=== PATIENT | female | born 1960 | race Caucasian/White ===

== ENCOUNTER 2017-10-25 11:10 | Emergency (ER) | payer OTHER ==
[~2017-10-25] VITALS: Ht 170.2 cm; Wt 42.8 kg
[2017-10-25] MEDS ORDERED: ondansetron/PF 4mg/2ml inj IV ONE (11:35)
[2017-10-25] MEDS ORDERED: morphine 4 MG/ML inj SYRINge IV ONE (11:35)
[2017-10-25] MEDS ORDERED: normal saline 1000ML IV soln IVB ONE ×2 (11:35→12:35)
[2017-10-25 11:45] LABS: BASOPHILS % (AUTO) 0.1 % (0-1); EOSINOPHILS % (AUTO) 0 % (0-6); LYMPHOCYTES % (AUTO) 10.4 % (21-51); MEAN CORPUSCULAR HEMOGLOBIN 30.3 PG (27.0-31.0); MEAN CORPUSCULAR HGB CONC 33.9 % (33.0-36.5); MEAN CORPUSCULAR VOLUME 89.4 FL (78-98); MEAN PLATELET VOLUME 8.8 FL (7.4-10.4); MONOCYTES # (AUTO) 0.4 X10'3 (0-0.9); MONOCYTES % (AUTO) 3.8 % (2-12); NEUTROPHILS # (AUTO) 8.5 X10'3 (1.8-7.7); NEUTROPHILS % (AUTO) 85.7 % (42-75); PLATELET COUNT 202 X10'3 (140-440); RED BLOOD COUNT 6.27 X10'6 (4.20-5.60); RED CELL DISTRIBUTION WIDTH 14.4 % (11.5-14.5); WHITE BLOOD COUNT 9.9 X10'3 (4.5-11.0)
[2017-10-25 11:54] LABS: INR 1.1 INR; PROTHROMBIN TIME 11.4 SECONDS (9.0-12.0)
[2017-10-25 12:06] LABS: ALANINE AMINOTRANSFERASE 28 U/L (12-78); ALBUMIN 4.4 G/DL (3.4-5.0); ALKALINE PHOSPHATASE 162 IU/L (46-116); ANION GAP 11 (8-16); ASPARTATE AMINO TRANSFERASE 26 U/L (10-37); BILIRUBIN,TOTAL 1.1 MG/DL (0.1-1.0); BLOOD UREA NITROGEN 19 MG/DL (7-18); BUN/CREATININE RATIO 13.5 (6.6-38.0); CALCIUM 10.4 MG/DL (8.5-10.1); CHLORIDE 91 MMOL/L (99-107); CREATININE 1.41 MG/DL (0.40-0.90); GLUCOSE 274 MG/DL (70-104); LIPASE 54 U/L (73-393); POTASSIUM 3.8 MMOL/L (3.5-5.1); SODIUM 129 MMOL/L (135-145); TOTAL CARBON DIOXIDE 27.3 MMOL/L (24-32); TOTAL PROTEIN 8.7 G/DL (6.4-8.2); eGFR 38 ML/MIN
[2017-10-25] MEDS ORDERED: morphine 10mg/ml inj. IV ONE (13:00)
[2017-10-25 14:14] LABS: BASOPHILS % (AUTO) 0.1 % (0-1); EOSINOPHILS # (AUTO) 0.1 X10'3 (0-0.9); EOSINOPHILS % (AUTO) 1.3 % (0-6); HEMATOCRIT 47.3 % (35.0-45.0); HEMOGLOBIN 16.1 g/dl (12.0-16.0); LYMPHOCYTES # (AUTO) 0.8 X10'3 (1.1-4.8); LYMPHOCYTES % (AUTO) 10.4 % (21-51); MEAN CORPUSCULAR HEMOGLOBIN 30.2 PG (27.0-31.0); MEAN CORPUSCULAR HGB CONC 34.1 % (33.0-36.5); MEAN CORPUSCULAR VOLUME 88.7 FL (78-98); MEAN PLATELET VOLUME 8.9 FL (7.4-10.4); MONOCYTES # (AUTO) 0.4 X10'3 (0-0.9); NEUTROPHILS # (AUTO) 6.7 X10'3 (1.8-7.7); NEUTROPHILS % (AUTO) 83.2 % (42-75); PLATELET COUNT 120 X10'3 (140-440); RED BLOOD COUNT 5.34 X10'6 (4.20-5.60); RED CELL DISTRIBUTION WIDTH 14.6 % (11.5-14.5); WHITE BLOOD COUNT 8.1 X10'3 (4.5-11.0)
[2017-10-25 14:29] LABS: ALANINE AMINOTRANSFERASE 20 U/L (12-78); ALBUMIN 3.3 G/DL (3.4-5.0); ALKALINE PHOSPHATASE 127 IU/L (46-116); ANION GAP 8 (8-16); ASPARTATE AMINO TRANSFERASE 21 U/L (10-37); BILIRUBIN,TOTAL 0.6 MG/DL (0.1-1.0); BLOOD UREA NITROGEN 17 MG/DL (7-18); CALCIUM 8.7 MG/DL (8.5-10.1); CHLORIDE 98 MMOL/L (99-107); CREATININE 1.31 MG/DL (0.40-0.90); GLUCOSE 211 MG/DL (70-104); POTASSIUM 3.8 MMOL/L (3.5-5.1); SODIUM 133 MMOL/L (135-145); TOTAL CARBON DIOXIDE 27.2 MMOL/L (24-32); TOTAL PROTEIN 6.7 G/DL (6.4-8.2); eGFR 42 ML/MIN
[2017-10-25 14:48] VITALS: BP 129/71
== END 2017-10-25 14:51 | disposition home or self-care (01) ==
LOC: ER 11:12
DX: K86.1 Other chronic pancreatitis (principal); E86.0 Dehydration; F17.200 Nicotine dependence, unspecified, uncomplicated; I25.10 Atherosclerotic heart disease of native coronary artery without angina pectoris; I25.2 Old myocardial infarction; Z88.8 Allergy status to other drugs, medicaments and biological substances
CPT/HCPCS: 36415; 80053; 83690; 85025; 85610; 96361; 96374; 96375; 96376; 99285; J2270; J2405; J7030

== ENCOUNTER 2017-10-27 14:02 | Emergency (ER) | payer OTHER ==
[~2017-10-27] VITALS: Ht 584.7 cm; Wt 42.0 kg
[2017-10-27] MEDS ORDERED: ondansetron/PF 4mg/2ml inj IV ONE ×2 (14:15→14:20)
[2017-10-27] MEDS ORDERED: normal saline 1000ML IV soln IVB ONE ×2 (14:15→15:10)
[2017-10-27] MEDS ORDERED: morphine 4 MG/ML inj SYRINge IV ONE (14:20)
[2017-10-27 14:32] LABS: BASOPHILS # (AUTO) 0.1 X10'3 (0-0.2); BASOPHILS % (AUTO) 0.6 % (0-1); EOSINOPHILS # (AUTO) 0.1 X10'3 (0-0.9); EOSINOPHILS % (AUTO) 0.6 % (0-6); HEMATOCRIT 56.1 % (35.0-45.0); LYMPHOCYTES # (AUTO) 2.3 X10'3 (1.1-4.8); LYMPHOCYTES % (AUTO) 21.6 % (21-51); MEAN CORPUSCULAR HEMOGLOBIN 30.3 PG (27.0-31.0); MEAN CORPUSCULAR VOLUME 89.1 FL (78-98); MEAN PLATELET VOLUME 8.7 FL (7.4-10.4); MONOCYTES % (AUTO) 9.2 % (2-12); NEUTROPHILS # (AUTO) 7.1 X10'3 (1.8-7.7); PLATELET COUNT 198 X10'3 (140-440); RED BLOOD COUNT 6.29 X10'6 (4.20-5.60); RED CELL DISTRIBUTION WIDTH 14.7 % (11.5-14.5); WHITE BLOOD COUNT 10.4 X10'3 (4.5-11.0)
[2017-10-27 14:39] LABS: HEMOGLOBIN 19.1 g/dl (12.0-16.0)
[2017-10-27 14:53] LABS: ALANINE AMINOTRANSFERASE 27 U/L (12-78); ALBUMIN 3.9 G/DL (3.4-5.0); ALBUMIN/GLOBULIN RATIO 1.1 (1.1-1.5); ALKALINE PHOSPHATASE 161 IU/L (46-116); ANION GAP 8 (8-16); ASPARTATE AMINO TRANSFERASE 20 U/L (10-37); BILIRUBIN,TOTAL 0.9 MG/DL (0.1-1.0); BLOOD UREA NITROGEN 20 MG/DL (7-18); BUN/CREATININE RATIO 14.8 (6.6-38.0); CALCIUM 9.6 MG/DL (8.5-10.1); CHLORIDE 94 MMOL/L (99-107); CREATININE 1.35 MG/DL (0.40-0.90); GLUCOSE 192 MG/DL (70-104); LIPASE 61 U/L (73-393); SODIUM 132 MMOL/L (135-145); TOTAL CARBON DIOXIDE 30.3 MMOL/L (24-32); TOTAL PROTEIN 7.6 G/DL (6.4-8.2); eGFR 40 ML/MIN
[2017-10-27 15:24] VITALS: BP 163/86
[2017-10-27] MEDS ORDERED: ketorolac trometh. 30mg/ml inj. IV ONE (15:40)
[2017-10-27] MEDS ORDERED: HYDROmorphone 1 mg/ml syringe IV ONE (15:40)
[2017-10-27 15:45] LABS: CLARITY,URINE CLEAR (Clear); COLOR,URINE YELLOW (Yellow); GLUCOSE, URINE NEGATIVE (Neg); KETONES,URINE NEGATIVE (Neg); LEUKOCYTE ESTERASE ,URINE NEGATIVE (Neg); NITRITES, URINE NEGATIVE (Neg); OCCULT BLOOD,URINE TRACE-INTACT (Neg); PH,URINE 6.5 (4.8-8.0); PROTEIN,URINE >=300 mg/dl (Neg); UROBILINOGEN,URINE 0.2 E.U/dL (0.2-1.0)
[2017-10-27 16:01] LABS: UA COLLECTION TYPE CLN CATCH MIDSTREAM
[2017-10-27 16:02] LABS: WBC,URINE 0-4 /HPF (0-4)
[2017-10-27 16:04] LABS: BACTERIA,URINE FEW /HPF (Neg); MUCUS STRANDS FEW /LPF (Neg); SQUAMOUS EPITHELIAL CELL,UR FEW /LPF (FEW)
[2017-10-28] MEDS ORDERED: FENT-92 TD (17:50)
[2017-10-28] MEDS ORDERED: CLOP75TA15 PO (17:50)
[2017-10-28] MEDS ORDERED: PER5325T PO (17:50)
[2017-10-28] MEDS ORDERED: AMYL1CAP56 PO (17:50)
[2017-10-28] MEDS ORDERED: SUCR1ORA2 PO (17:50)
[2017-10-28] MEDS ORDERED: ONDA8TAB6 PO (17:50)
[2017-10-28] MEDS ORDERED: METO-467 PO (17:50)
[2017-10-28] MEDS ORDERED: PANT20TA3 PO (17:50)
[2017-10-28] MEDS ORDERED: THO10T PO (17:50)
== END 2017-10-27 16:34 | disposition home or self-care (01) ==
LOC: ER 14:04
DX: K86.1 Other chronic pancreatitis (principal); I25.2 Old myocardial infarction; I25.10 Atherosclerotic heart disease of native coronary artery without angina pectoris; Z88.8 Allergy status to other drugs, medicaments and biological substances
CPT/HCPCS: 36415; 80053; 81001; 83690; 84484; 85025; 93005; 96361; 96374; 96375; 99285; J1170; J1885; J2270; J2405; J7030

== ENCOUNTER 2017-10-28 15:14 | Inpatient (IN) | payer OTHER ==
[~2017-10-28] VITALS: Ht 170.2 cm; Wt 44.7 kg
[2017-10-28] MEDS ORDERED: HYDROmorphone 1 mg/ml syringe IV ONE ×4 (15:35→23:10)
[2017-10-28] MEDS ORDERED: ondansetron/PF 4mg/2ml inj IV ONE (15:35)
[2017-10-28] MEDS ORDERED: normal saline 1000ML IV soln IVB ONE (15:35)
[2017-10-28] MEDS ORDERED: ketorolac tromethamine 15mg/ml inj. IV ONE (15:35)
[2017-10-28 15:59] LABS: BASOPHILS % (AUTO) 0.1 % (0-1); EOSINOPHILS # (AUTO) 0.1 X10'3 (0-0.9); EOSINOPHILS % (AUTO) 0.5 % (0-6); HEMATOCRIT 57.3 % (35.0-45.0); LYMPHOCYTES # (AUTO) 1.7 X10'3 (1.1-4.8); LYMPHOCYTES % (AUTO) 10.3 % (21-51); MEAN CORPUSCULAR HEMOGLOBIN 30.1 PG (27.0-31.0); MEAN CORPUSCULAR VOLUME 88.5 FL (78-98); MEAN PLATELET VOLUME 8.9 FL (7.4-10.4); MONOCYTES # (AUTO) 0.8 X10'3 (0-0.9); MONOCYTES % (AUTO) 5.1 % (2-12); PLATELET COUNT 200 X10'3 (140-440); RED BLOOD COUNT 6.47 X10'6 (4.20-5.60); RED CELL DISTRIBUTION WIDTH 14.4 % (11.5-14.5); WHITE BLOOD COUNT 16.7 X10'3 (4.5-11.0)
[2017-10-28 16:05] LABS: HEMOGLOBIN 19.5 g/dl (12.0-16.0)
[2017-10-28 16:07] LABS: CLARITY,URINE SLIGHTLY CLOUDY (Clear); COLOR,URINE YELLOW (Yellow); GLUCOSE, URINE NEGATIVE (Neg); KETONES,URINE 40 mg/dl (Neg); LEUKOCYTE ESTERASE ,URINE NEGATIVE (Neg); NITRITES, URINE NEGATIVE (Neg); OCCULT BLOOD,URINE TRACE-INTACT (Neg); PROTEIN,URINE 100 mg/dl (Neg); UA COLLECTION TYPE CLN CATCH MIDSTREAM
[2017-10-28 16:14] LABS: ALANINE AMINOTRANSFERASE 95 U/L (12-78); ALBUMIN 3.9 G/DL (3.4-5.0); ALKALINE PHOSPHATASE 245 IU/L (46-116); ANION GAP 8 (8-16); ASPARTATE AMINO TRANSFERASE 65 U/L (10-37); BILIRUBIN,TOTAL 1.2 MG/DL (0.1-1.0); BLOOD UREA NITROGEN 27 MG/DL (7-18); BUN/CREATININE RATIO 22.3 (6.6-38.0); CALCIUM 9.6 MG/DL (8.5-10.1); CHLORIDE 92 MMOL/L (99-107); CREATININE 1.21 MG/DL (0.40-0.90); GLUCOSE 188 MG/DL (70-104); LIPASE < 50 U/L (73-393); SODIUM 129 MMOL/L (135-145); TOTAL CARBON DIOXIDE 29.3 MMOL/L (24-32); TOTAL PROTEIN 7.8 G/DL (6.4-8.2); eGFR 46 ML/MIN
[2017-10-28 16:16] LABS: POTASSIUM 4.1 MMOL/L (3.5-5.1)
[2017-10-28 16:28] LABS: MUCUS STRANDS FEW /LPF (Neg); SQUAMOUS EPITHELIAL CELL,UR MODERATE /LPF (FEW)
[2017-10-28 16:31] LABS: BACTERIA,URINE FEW /HPF (Neg); WBC,URINE 0-4 /HPF (0-4)
[2017-10-28] MEDS ORDERED: iohexol 300mg/ml 100ml inj. ONE (17:09)
[2017-10-28] MEDS ORDERED: METO-467 PO (17:50)
[2017-10-28] MEDS ORDERED: ONDA8TAB6 PO (17:50)
[2017-10-28] MEDS ORDERED: SUCR1ORA2 PO (17:50)
[2017-10-28] MEDS ORDERED: PER5325T PO (17:50)
[2017-10-28] MEDS ORDERED: FENT-92 TD (17:50)
[2017-10-28] MEDS ORDERED: THO10T PO (17:50)
[2017-10-28] MEDS ORDERED: AMYL1CAP56 PO (17:50)
[2017-10-28] MEDS ORDERED: CLOP75TA15 PO (17:50)
[2017-10-28] MEDS ORDERED: PANT20TA3 PO (17:50)
[2017-10-28] MEDS ORDERED: normal saline 1000ML IV soln IV ONE (19:45)
[2017-10-28] MEDS ORDERED: metoprolol tartrate 1mg/ml inj IV ONE (20:00)
[2017-10-28] MEDS ORDERED: pantoprazole 40mg Tablet.DR PO ONE (20:05)
[2017-10-28] MEDS ORDERED: normal saline 1000ml 1,000 ML IV ONE (20:10)
[2017-10-28] MEDS ORDERED: acetaminophen 325mg tablet PO PRN ×2 (20:10)
[2017-10-28] MEDS ORDERED: HYDROmorphone inj. 0.5 MG/0.5 ML DISP.SYRIN IV PRN ×2 (20:10)
[2017-10-28] MEDS ORDERED: mag hydrox/Alum hydrox/simeth 30ml oral suspension PO PRN (20:10)
[2017-10-28] MEDS ORDERED: magnesium hydroxide 30ml (MOM) UD suspension PO PRN (20:10)
[2017-10-28] MEDS ORDERED: HYDROmorphone 1 mg/ml syringe ONE (20:16)
[2017-10-28] MEDS: normal saline 1000ml 1,000 ML IV SCH (20:46)
[2017-10-28] MEDS: LIPASE/PROTEASE/AMYLASE 4,200 unit CAPSULE.DR PO SCH ×2 (21:00→23:54)
[2017-10-28] MEDS: chlorproMAZINE 25mg tablet PO SCH ×2 (21:00→23:53)
[2017-10-28 21:15] VITALS: BP 210/124
[2017-10-28] MEDS ORDERED: HYDROmorphone/NS 1 mg/ml CADD 50 ML IV SCH (21:45)
[2017-10-28] MEDS: metoprolol tartrate 50mg tablet PO SCH (21:56)
[2017-10-28 22:35] VITALS: BP 153/89
[2017-10-28] MEDS: ondansetron/PF 4mg/2ml inj IV PRN (23:56)
[2017-10-29] VITALS: BP 190/113
[2017-10-29] MEDS: hydrALAZINE 20mg/ml inj. IV PRN (00:24)
[2017-10-29 01:20] VITALS: BP 148/93
[2017-10-29] MEDS: sucralfate 1gm/10ml UD suspension PO SCH ×4 (01:33→19:32)
[2017-10-29] MEDS: HYDROmorphone/NS 1 mg/ml CADD 50 ML IV SCH ×11 (03:00→23:00)
[2017-10-29] MEDS: normal saline 1000ml 1,000 ML IV SCH ×3 (04:07→21:34)
[2017-10-29 06:35] LABS: BASOPHILS % (AUTO) 0 % (0-1); EOSINOPHILS # (AUTO) 0.2 X10'3 (0-0.9); EOSINOPHILS % (AUTO) 1.4 % (0-6); HEMATOCRIT 45.8 % (35.0-45.0); HEMOGLOBIN 15.8 g/dl (12.0-16.0); LYMPHOCYTES # (AUTO) 1.1 X10'3 (1.1-4.8); LYMPHOCYTES % (AUTO) 7.8 % (21-51); MEAN CORPUSCULAR HEMOGLOBIN 30.4 PG (27.0-31.0); MEAN CORPUSCULAR HGB CONC 34.4 % (33.0-36.5); MEAN CORPUSCULAR VOLUME 88.4 FL (78-98); MEAN PLATELET VOLUME 9.2 FL (7.4-10.4); MONOCYTES # (AUTO) 0.6 X10'3 (0-0.9); MONOCYTES % (AUTO) 4.6 % (2-12); NEUTROPHILS # (AUTO) 12.2 X10'3 (1.8-7.7); NEUTROPHILS % (AUTO) 86.2 % (42-75); PLATELET COUNT 122 X10'3 (140-440); RED BLOOD COUNT 5.18 X10'6 (4.20-5.60); RED CELL DISTRIBUTION WIDTH 14.1 % (11.5-14.5); WHITE BLOOD COUNT 14.2 X10'3 (4.5-11.0)
[2017-10-29 06:51] LABS: ALANINE AMINOTRANSFERASE 57 U/L (12-78); ALBUMIN 2.7 G/DL (3.4-5.0); ALKALINE PHOSPHATASE 149 IU/L (46-116); ANION GAP 9 (8-16); ASPARTATE AMINO TRANSFERASE 32 U/L (10-37); BILIRUBIN,DIRECT 0.2 MG/DL (0-0.3); BILIRUBIN,TOTAL 0.9 MG/DL (0.1-1.0); BLOOD UREA NITROGEN 24 MG/DL (7-18); BUN/CREATININE RATIO 29.6 (6.6-38.0); CHLORIDE 98 MMOL/L (99-107); CREATININE 0.81 MG/DL (0.40-0.90); GLUCOSE 155 MG/DL (70-104); POTASSIUM 3.2 MMOL/L (3.5-5.1); SODIUM 130 MMOL/L (135-145); TOTAL CARBON DIOXIDE 22.8 MMOL/L (24-32); TOTAL PROTEIN 5.5 G/DL (6.4-8.2); eGFR 73 ML/MIN
[2017-10-29 08:00] VITALS: BP 167/99
[2017-10-29] MEDS: LIPASE/PROTEASE/AMYLASE 4,200 unit CAPSULE.DR PO SCH ×3 (08:00→21:41)
[2017-10-29] MEDS ORDERED: pantoprazole 40mg Tablet.DR PO SCH (08:00)
[2017-10-29] MEDS: metoprolol tartrate 50mg tablet PO SCH ×2 (08:29→19:33)
[2017-10-29] MEDS: clopidogrel 75mg tablet PO SCH (08:29)
[2017-10-29] MEDS: pantoprazole 40mg Tablet.DR PO SCH ×2 (08:30→08:37)
[2017-10-29] MEDS: chlorproMAZINE 25mg tablet PO SCH ×3 (10:08→21:41)
[2017-10-29] MEDS ORDERED: magnesium Cl slow-release 64mg tablet PO PRN (10:55)
[2017-10-29] MEDS ORDERED: potassium Cl 40MEQ/NS 500ml 500 ML IV PRN ×2 (10:55)
[2017-10-29] MEDS ORDERED: potassium Cl 20 mEq SR tablet PO PRN (10:55)
[2017-10-29] MEDS ORDERED: magnesium 4gm in 100ml NS 100 ML IV PRN (10:55)
[2017-10-29 11:54] LABS: MAGNESIUM 1.2 MG/DL (1.5-2.4); POTASSIUM 3.3 MMOL/L (3.5-5.1)
[2017-10-29 12:00] VITALS: BP 138/90
[2017-10-29] MEDS: potassium Cl 20 mEq SR tablet PO PRN ×2 (15:28→19:35)
[2017-10-29 20:00] VITALS: BP 141/78
[2017-10-29 22:37] VITALS: BP 141/78
[2017-10-29] MEDS: magnesium 1gm/100ml D5W IVPB 100 ML IV PRN (23:22)
[2017-10-30] VITALS: BP 111/73
[2017-10-30] MEDS: HYDROmorphone/NS 1 mg/ml CADD 50 ML IV SCH ×12 (01:00→23:00)
[2017-10-30] MEDS: magnesium 1gm/100ml D5W IVPB 100 ML IV PRN (01:44)
[2017-10-30] MEDS: sucralfate 1gm/10ml UD suspension PO SCH ×4 (01:44→20:24)
[2017-10-30] MEDS: normal saline 1000ml 1,000 ML IV SCH ×4 (04:07→23:52)
[2017-10-30 05:38] LABS: BASOPHILS % (AUTO) 0.3 % (0-1); EOSINOPHILS # (AUTO) 0.2 X10'3 (0-0.9); EOSINOPHILS % (AUTO) 3.1 % (0-6); HEMATOCRIT 36.6 % (35.0-45.0); HEMOGLOBIN 12.6 g/dl (12.0-16.0); LYMPHOCYTES # (AUTO) 1.2 X10'3 (1.1-4.8); LYMPHOCYTES % (AUTO) 21.2 % (21-51); MEAN CORPUSCULAR HEMOGLOBIN 30.5 PG (27.0-31.0); MEAN CORPUSCULAR HGB CONC 34.3 % (33.0-36.5); MEAN CORPUSCULAR VOLUME 88.9 FL (78-98); MEAN PLATELET VOLUME 9.1 FL (7.4-10.4); MONOCYTES # (AUTO) 0.3 X10'3 (0-0.9); MONOCYTES % (AUTO) 5.8 % (2-12); NEUTROPHILS # (AUTO) 4.1 X10'3 (1.8-7.7); NEUTROPHILS % (AUTO) 69.6 % (42-75); PLATELET COUNT 66 X10'3 (140-440); RED BLOOD COUNT 4.12 X10'6 (4.20-5.60); WHITE BLOOD COUNT 5.9 X10'3 (4.5-11.0)
[2017-10-30 06:09] LABS: ALBUMIN 2.2 G/DL (3.4-5.0); ANION GAP 8 (8-16); BLOOD UREA NITROGEN 19 MG/DL (7-18); BUN/CREATININE RATIO 22.9 (6.6-38.0); CALCIUM 7.7 MG/DL (8.5-10.1); CHLORIDE 105 MMOL/L (99-107); CREATININE 0.83 MG/DL (0.40-0.90); GLUCOSE 110 MG/DL (70-104); POTASSIUM 3.7 MMOL/L (3.5-5.1); SODIUM 135 MMOL/L (135-145); TOTAL CARBON DIOXIDE 21.9 MMOL/L (24-32); eGFR 71 ML/MIN
[2017-10-30 07:00] VITALS: BP 133/84
[2017-10-30] MEDS: chlorproMAZINE 25mg tablet PO SCH ×3 (09:44→20:27)
[2017-10-30] MEDS: LIPASE/PROTEASE/AMYLASE 4,200 unit CAPSULE.DR PO SCH ×3 (09:44→20:26)
[2017-10-30] MEDS: pantoprazole 40mg Tablet.DR PO SCH (09:44)
[2017-10-30] MEDS: clopidogrel 75mg tablet PO SCH (09:44)
[2017-10-30] MEDS: fentaNYL 75 MCG/hour patch.TD72 TD SCH (09:45)
[2017-10-30] MEDS: metoprolol tartrate 50mg tablet PO SCH ×2 (09:45→20:26)
[2017-10-30 12:00] VITALS: BP 183/101
[2017-10-30] MEDS: nicotine 14mg patch - 24hr TD SCH (12:47)
[2017-10-30 15:30] VITALS: BP 163/91
[2017-10-30 19:00] VITALS: BP 162/87
[2017-10-31] VITALS: BP 130/75
[2017-10-31] MEDS: HYDROmorphone/NS 1 mg/ml CADD 50 ML IV SCH ×12 (01:00→23:00)
[2017-10-31] MEDS: sucralfate 1gm/10ml UD suspension PO SCH ×4 (02:00→19:54)
[2017-10-31 05:12] LABS: BASOPHILS % (AUTO) 0.4 % (0-1); EOSINOPHILS # (AUTO) 0.1 X10'3 (0-0.9); EOSINOPHILS % (AUTO) 2.6 % (0-6); HEMATOCRIT 32.8 % (35.0-45.0); HEMOGLOBIN 11.2 g/dl (12.0-16.0); LYMPHOCYTES # (AUTO) 0.9 X10'3 (1.1-4.8); LYMPHOCYTES % (AUTO) 21.9 % (21-51); MEAN CORPUSCULAR HEMOGLOBIN 30.3 PG (27.0-31.0); MEAN CORPUSCULAR HGB CONC 34.1 % (33.0-36.5); MEAN CORPUSCULAR VOLUME 88.9 FL (78-98); MEAN PLATELET VOLUME 9.9 FL (7.4-10.4); MONOCYTES # (AUTO) 0.3 X10'3 (0-0.9); MONOCYTES % (AUTO) 6.4 % (2-12); NEUTROPHILS # (AUTO) 2.9 X10'3 (1.8-7.7); NEUTROPHILS % (AUTO) 68.7 % (42-75); PLATELET COUNT 63 X10'3 (140-440); RED BLOOD COUNT 3.69 X10'6 (4.20-5.60); RED CELL DISTRIBUTION WIDTH 13.9 % (11.5-14.5); WHITE BLOOD COUNT 4.2 X10'3 (4.5-11.0)
[2017-10-31 06:06] LABS: ALBUMIN 2.2 G/DL (3.4-5.0); ANION GAP 9 (8-16); BLOOD UREA NITROGEN 14 MG/DL (7-18); BUN/CREATININE RATIO 17.9 (6.6-38.0); CALCIUM 8.1 MG/DL (8.5-10.1); CHLORIDE 107 MMOL/L (99-107); CREATININE 0.78 MG/DL (0.40-0.90); GLUCOSE 88 MG/DL (70-104); MAGNESIUM 1.7 MG/DL (1.5-2.4); POTASSIUM 3.4 MMOL/L (3.5-5.1); SODIUM 136 MMOL/L (135-145); TOTAL CARBON DIOXIDE 19.7 MMOL/L (24-32); eGFR 76 ML/MIN
[2017-10-31 07:00] VITALS: BP 158/81
[2017-10-31] MEDS: pantoprazole 40mg Tablet.DR PO SCH (08:29)
[2017-10-31] MEDS: chlorproMAZINE 25mg tablet PO SCH ×3 (08:29→20:49)
[2017-10-31] MEDS: LIPASE/PROTEASE/AMYLASE 4,200 unit CAPSULE.DR PO SCH ×3 (08:29→20:50)
[2017-10-31] MEDS: clopidogrel 75mg tablet PO SCH (08:29)
[2017-10-31] MEDS: metoprolol tartrate 50mg tablet PO SCH ×2 (08:30→19:54)
[2017-10-31] MEDS: nicotine 14mg patch - 24hr TD SCH (08:31)
[2017-10-31] MEDS: normal saline 1000ml 1,000 ML IV SCH ×2 (08:51→17:08)
[2017-10-31 11:00] VITALS: BP 149/88
[2017-10-31] MEDS ORDERED: naloxone 0.4 mg/ml inj IV PRN (11:05)
[2017-10-31] MEDS ORDERED: CADD PCA waste documentation MC SCH (11:05)
[2017-10-31 18:50] VITALS: BP 168/98
[2017-10-31] MEDS: hydrALAZINE 20mg/ml inj. IV PRN (19:54)
[2017-10-31] MEDS: LORazepam 0.5 MG tablet PO PRN (19:54)
[2017-11-01] VITALS: BP 170/107
[2017-11-01] MEDS: normal saline 1000ml 1,000 ML IV SCH ×3 (00:43→20:49)
[2017-11-01] MEDS: HYDROmorphone/NS 1 mg/ml CADD 50 ML IV SCH ×12 (00:59→23:00)
[2017-11-01] MEDS: sucralfate 1gm/10ml UD suspension PO SCH ×4 (02:17→20:50)
[2017-11-01] MEDS: hydrALAZINE 20mg/ml inj. IV PRN (04:16)
[2017-11-01 04:23] VITALS: BP 174/94
[2017-11-01 05:31] LABS: BASOPHILS % (AUTO) 0.5 % (0-1); EOSINOPHILS # (AUTO) 0.1 X10'3 (0-0.9); EOSINOPHILS % (AUTO) 2.9 % (0-6); HEMATOCRIT 34.4 % (35.0-45.0); HEMOGLOBIN 11.8 g/dl (12.0-16.0); LYMPHOCYTES # (AUTO) 0.8 X10'3 (1.1-4.8); LYMPHOCYTES % (AUTO) 19.2 % (21-51); MEAN CORPUSCULAR HEMOGLOBIN 30.4 PG (27.0-31.0); MEAN CORPUSCULAR HGB CONC 34.4 % (33.0-36.5); MEAN CORPUSCULAR VOLUME 88.4 FL (78-98); MEAN PLATELET VOLUME 9.5 FL (7.4-10.4); MONOCYTES # (AUTO) 0.2 X10'3 (0-0.9); MONOCYTES % (AUTO) 6.2 % (2-12); NEUTROPHILS # (AUTO) 2.8 X10'3 (1.8-7.7); NEUTROPHILS % (AUTO) 71.2 % (42-75); PLATELET COUNT 57 X10'3 (140-440); RED BLOOD COUNT 3.89 X10'6 (4.20-5.60); RED CELL DISTRIBUTION WIDTH 14.1 % (11.5-14.5); WHITE BLOOD COUNT 3.9 X10'3 (4.5-11.0)
[2017-11-01 05:44] LABS: ALBUMIN 2.3 G/DL (3.4-5.0); ANION GAP 7 (8-16); BLOOD UREA NITROGEN 5 MG/DL (7-18); BUN/CREATININE RATIO 7.8 (6.6-38.0); CALCIUM 8.2 MG/DL (8.5-10.1); CHLORIDE 106 MMOL/L (99-107); CREATININE 0.64 MG/DL (0.40-0.90); GLUCOSE 125 MG/DL (70-104); MAGNESIUM 1.3 MG/DL (1.5-2.4); SODIUM 138 MMOL/L (135-145); TOTAL CARBON DIOXIDE 25.4 MMOL/L (24-32); eGFR > 90 ML/MIN
[2017-11-01 07:00] VITALS: BP 157/104
[2017-11-01] MEDS: nicotine 14mg patch - 24hr TD SCH (08:25)
[2017-11-01] MEDS: pantoprazole 40mg Tablet.DR PO SCH (08:28)
[2017-11-01] MEDS: chlorproMAZINE 25mg tablet PO SCH ×3 (08:28→22:33)
[2017-11-01] MEDS: metoprolol tartrate 50mg tablet PO SCH ×2 (08:29→20:50)
[2017-11-01] MEDS: citalopram 20mg tablet PO SCH (08:29)
[2017-11-01] MEDS: clopidogrel 75mg tablet PO SCH (08:29)
[2017-11-01] MEDS: LIPASE/PROTEASE/AMYLASE 4,200 unit CAPSULE.DR PO SCH ×3 (08:37→22:33)
[2017-11-01] MEDS: ondansetron/PF 4mg/2ml inj IV PRN (10:03)
[2017-11-01] MEDS ORDERED: AMLO5TAB16 PO (10:30)
[2017-11-01] MEDS ORDERED: amLODIPine 5mg tablet PO ONE ×2 (10:30→17:35)
[2017-11-01] MEDS ORDERED: CITA-124 PO (10:30)
[2017-11-01 11:00] VITALS: BP 162/98
[2017-11-01 12:09] LABS: % IRON SATURATION 25 % (11-46); IRON 52 UG/DL (49-151); TOTAL IRON BINDING CAPACITY 206 UG/DL (259-388)
[2017-11-01 18:00] VITALS: BP 159/103
[2017-11-01] MEDS: LORazepam 0.5 MG tablet PO PRN (20:52)
[2017-11-02] VITALS: BP 169/103
[2017-11-02 00:30] VITALS: BP 143/87
[2017-11-02] MEDS: HYDROmorphone/NS 1 mg/ml CADD 50 ML IV SCH ×5 (01:00→09:00)
[2017-11-02] MEDS: sucralfate 1gm/10ml UD suspension PO SCH ×2 (01:59→08:24)
[2017-11-02 04:32] LABS: BASOPHILS % (AUTO) 0.3 % (0-1); EOSINOPHILS # (AUTO) 0.2 X10'3 (0-0.9); EOSINOPHILS % (AUTO) 3.4 % (0-6); HEMATOCRIT 35.3 % (35.0-45.0); HEMOGLOBIN 12.1 g/dl (12.0-16.0); LYMPHOCYTES # (AUTO) 0.9 X10'3 (1.1-4.8); LYMPHOCYTES % (AUTO) 16.7 % (21-51); MEAN CORPUSCULAR HEMOGLOBIN 30.8 PG (27.0-31.0); MEAN CORPUSCULAR HGB CONC 34.3 % (33.0-36.5); MEAN CORPUSCULAR VOLUME 89.7 FL (78-98); MEAN PLATELET VOLUME 9.9 FL (7.4-10.4); MONOCYTES # (AUTO) 0.4 X10'3 (0-0.9); MONOCYTES % (AUTO) 8.2 % (2-12); NEUTROPHILS # (AUTO) 3.7 X10'3 (1.8-7.7); NEUTROPHILS % (AUTO) 71.4 % (42-75); PLATELET COUNT 74 X10'3 (140-440); RED BLOOD COUNT 3.94 X10'6 (4.20-5.60); RED CELL DISTRIBUTION WIDTH 14.2 % (11.5-14.5); WHITE BLOOD COUNT 5.2 X10'3 (4.5-11.0)
[2017-11-02] MEDS: normal saline 1000ml 1,000 ML IV SCH (04:32)
[2017-11-02 04:44] LABS: ALBUMIN 2.4 G/DL (3.4-5.0); ANION GAP 8 (8-16); BLOOD UREA NITROGEN 3 MG/DL (7-18); BUN/CREATININE RATIO 4.6 (6.6-38.0); CALCIUM 8.2 MG/DL (8.5-10.1); CHLORIDE 102 MMOL/L (99-107); CREATININE 0.65 MG/DL (0.40-0.90); GLUCOSE 123 MG/DL (70-104); MAGNESIUM 1.2 MG/DL (1.5-2.4); POTASSIUM 3.4 MMOL/L (3.5-5.1); SODIUM 137 MMOL/L (135-145); TOTAL CARBON DIOXIDE 27.3 MMOL/L (24-32); eGFR > 90 ML/MIN
[2017-11-02 07:00] VITALS: BP 150/95
[2017-11-02] MEDS ORDERED: potassium Cl 40MEQ/NS 500ml 500 ML IV PRN ×2 (07:35)
[2017-11-02] MEDS ORDERED: magnesium 4gm in 100ml NS 100 ML IV PRN (07:35)
[2017-11-02] MEDS ORDERED: potassium Cl 20 mEq SR tablet PO PRN ×2 (07:35)
[2017-11-02] MEDS ORDERED: magnesium 1gm/100ml D5W IVPB 100 ML IV PRN (07:35)
[2017-11-02] MEDS ORDERED: magnesium Cl slow-release 64mg tablet PO PRN (07:35)
[2017-11-02] MEDS ORDERED: amLODIPine 5mg tablet PO SCH (08:00)
[2017-11-02] MEDS: LIPASE/PROTEASE/AMYLASE 4,200 unit CAPSULE.DR PO SCH (08:19)
[2017-11-02] MEDS: clopidogrel 75mg tablet PO SCH (08:21)
[2017-11-02] MEDS: pantoprazole 40mg Tablet.DR PO SCH (08:22)
[2017-11-02] MEDS: chlorproMAZINE 25mg tablet PO SCH (08:23)
[2017-11-02] MEDS: metoprolol tartrate 50mg tablet PO SCH (08:23)
[2017-11-02] MEDS: citalopram 20mg tablet PO SCH (08:24)
[2017-11-02] MEDS: nicotine 14mg patch - 24hr TD SCH (08:26)
[2017-11-02] MEDS: fentaNYL 75 MCG/hour patch.TD72 TD SCH (09:35)
[2017-11-02 10:04] LABS: MAGNESIUM 1.1 MG/DL (1.5-2.4); POTASSIUM 3.6 MMOL/L (3.5-5.1)
[2017-11-02 11:00] VITALS: BP 132/85
== END 2017-11-02 12:36 | disposition home or self-care (01) | DRG 438 ==
LOC: ER 15:14 → ED HOLD 20:07 → SUR 3N 21:15
PROVIDERS: ADMIT Internal Medicine; ATTEND Internal Medicine
PROC: BW211ZZ Computerized Tomography (CT Scan) of Abdomen and Pelvis using Low Osmolar Contrast (ICD-10-PCS; principal; 2017-10-28)
DX: K85.20 Alcohol induced acute pancreatitis without necrosis or infection (principal); E43 Unspecified severe protein-calorie malnutrition; Z68.1 Body mass index [BMI] 19.9 or less, adult; E87.1 Hypo-osmolality and hyponatremia; F17.210 Nicotine dependence, cigarettes, uncomplicated; K86.0 Alcohol-induced chronic pancreatitis; D75.1 Secondary polycythemia; E11.9 Type 2 diabetes mellitus without complications; E86.0 Dehydration; E87.6 Hypokalemia; I10 Essential (primary) hypertension; F32.9 Major depressive disorder, single episode, unspecified; F41.9 Anxiety disorder, unspecified; I25.10 Atherosclerotic heart disease of native coronary artery without angina pectoris; I25.2 Old myocardial infarction; Z95.5 Presence of coronary angioplasty implant and graft; Z90.49 Acquired absence of other specified parts of digestive tract; Z88.8 Allergy status to other drugs, medicaments and biological substances; Z79.899 Other long term (current) drug therapy; Z71.6 Tobacco abuse counseling
CPT/HCPCS: 36415; 74177; 80048; 80053; 81001; 82248; 82607; 82746; 83036; 83540; 83550; 83690; 83735; 84132; 85025; 87070; 96361; 96374; 96375; 99285; J0360; J1170; J1885; J2405; J3475; J3490; J7030; Q0161; Q9967